=== PATIENT | male | born 1965 | race Caucasian/White ===

== ENCOUNTER 2020-05-07 12:46 | Outpatient (RCR) | payer MEDICARE, SELFPAY ==
[2020-05-07] MEDS: COVID-19 VACC, MRNA(PFIZER)/PF 30 MCG/0.3 ML SYRINGE IM (18:12)
[2020-05-28] MEDS: COVID-19 VACC, MRNA(PFIZER)/PF 30 MCG/0.3 ML SYRINGE IM (17:39)
== END 2020-08-06 23:59 ==
LOC: IMMUN 12:46
PROVIDERS: PCP Family Medicine; Visit Provider Family Medicine
DX: Z23 Encounter for immunization (principal)
CPT/HCPCS: 0001A; 0002A; 91300